=== PATIENT | male | born 1980 | race Caucasian/White ===

== ENCOUNTER 2017-03-12 18:55 | Emergency (ER) | payer OTHER ==
[2017-03-12] MEDS ORDERED: PROPARACAINE 0.5% OPHTH DROPS 15 ML BTL LEFT EYE STA (19:38)
--- NOTE | 2017-03-12 19:41 | ED ---
General Adult HPI - General Stated complaint: FB in eye Time Seen by Provider: 03/12/17 19:33 Source: RN notes reviewed - History of Present Illness Initial comments: 37-year-old male presents to the emergency department with a chief complaint of left eye irritation. 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 He states his left eye. Patient has no other injuries. Patient is up -to-date on tetanus Patient denies any other symptoms at this time. Patient denies any recent fever, chills, shortness of breath, chest pain, back pain, abdominal pain, nausea vomiting, numbness or tingling, dysuria or hematuria, constipation or diarrhea, headaches or visual changes, or any other current symptoms. - Related Data Home Medications Medication Instructions Recorded Confirmed No Known Home Medications [No 03/12/17 03/12/17 Known Home Medications] Allergies Allergy/AdvReac Type Severity Reaction Status Date / Time No Known Allergies Allergy Verified 03/12/17 19:41 Review of Systems ROS Statement: Those systems with pertinent positive or pertinent negative responses have been documented in the HPI. ROS Other: All systems not noted in ROS Statement are negative. General Exam General appearance: alert, in no apparent distress Head exam: Present: atraumatic, normocephalic, normal inspection Eye exam: Present: normal appearance, PERRL, EOMI, other (History of a foreign body in the left eye.). Absent: scleral icterus, conjunctival injection, periorbital swelling ENT exam: Present: normal exam, mucous membranes moist Neck exam: Present: normal inspection. Absent: tenderness, meningismus, lymphadenopathy Respiratory exam: Present: normal lung sounds bilaterally. Absent: respiratory distress, wheezes, rales, rhonchi, stridor Cardiovascular Exam: Present: regular rate, normal rhythm, normal heart sounds. Absent: systolic murmur, diastolic murmur, rubs, gallop, clicks Neurological exam: Present: alert, oriented X3 Psychiatric exam: Present: normal affect, normal mood Skin exam: Present: warm, dry, intact, normal color. Absent: rash Course Vital Signs 03/12/17 19:37 Temperature 97.6 F Pulse Rate 74 Respiratory 18 Rate Blood Pressure 144/87 O2 Sat by Pulse 98 Oximetry Medical Decision Making - Medical Decision Making 29-year-old male presents emergency Department chief complaint foreign body to the left eye. This time with the patient is informed by the left eye. This 10 that was removed. We discussed follow-up. We discussed medication as prescribed. We discussed return parameters all patient's questions and he stated he understood the plan. They will be discharged. Disposition Clinical Impression: Foreign body of left eye Disposition: HOME SELF-CARE Condition: Stable Instructions: Eye Foreign Body (ED) Additional Instructions: Please use medication as discussed. Please follow up with family doctor if symptoms have not improved over the next two days. Please return to the emergency room if your symptoms increase or worsen or for any other concerns. Referrals: Ralf Baltazar MD [STAFF PHYSICIAN] - 1-2 days Time of Disposition: 19:54
[2017-03-12 19:45] VITALS: BP 144/87; PULSE 74; RESP 18; TEMP 97.6
[2017-03-12] MEDS ORDERED: TOBRAMYCIN 0.3% OPHTH OINT 3.5 GM TUBE LEFT EYE STA (19:54)
== END 2017-03-12 20:19 | disposition home or self-care (01) ==
LOC: EC 18:55
DX: T15.92XA Foreign body on external eye, part unspecified, left eye, initial encounter (principal)
CPT/HCPCS: 99283

== ENCOUNTER 2018-10-19 15:31 | Emergency (ER) | payer OTHER ==
[2018-10-19 15:48] VITALS: RESP 18; TEMP 98.6
[2018-10-19] MEDS ORDERED: PROPARACAINE 0.5% OPHTH DROPS 15 ML BTL BOTH EYES STA (15:54)
[2018-10-19] MEDS ORDERED: DIPH,PERTUS(ACELL)TETVAC-LF 0.5 ML VIAL IM ONE (16:29)
[2018-10-19] MEDS ORDERED: ERYTHROMYCIN 5 MG/GM OPHTH OINT 3.5 GM TUBE RIGHT EYE STA (16:30)
--- NOTE | 2018-10-19 17:24 | ED ---
General Adult HPI - General Chief complaint: Eye Problems Stated complaint: Something in eye, back pain Time Seen by Provider: 10/19/18 15:54 Source: patient, RN notes reviewed Mode of arrival: ambulatory Limitations: no limitations - History of Present Illness Initial comments: 38-year-old male presents to the emergency department for a chief complaint of corneal foreign body 2 hours. Patient states he was grinding stone when he felt something hit his right eye. Patient states he has had foreign bodies in the eye before from this and knows what it feels like. Patient is not up-to- date on tetanus. Patient denies wearing contacts. Patient states his eye feels irritated like there is something in it. Patient states he was wearing safety goggles but they're not the kind that adhered to the face. Patient has no other complaints at this time including shortness of breath, chest pain, abdominal pain, nausea or vomiting, headache, or visual changes. - Related Data Previous Rx's Medication Instructions Recorded Erythromycin Ophth Oint [Romycin 1 applic RIGHT EYE QID 7 Days gm 10/19/18 Ophth Oint] methylPREDNISolone Dose Pack 4 mg PO DIRECTED #21 package 10/19/18 [Medrol Dose Pack] Allergies Allergy/AdvReac Type Severity Reaction Status Date / Time No Known Allergies Allergy Verified 10/19/18 15:48 Review of Systems ROS Statement: Those systems with pertinent positive or pertinent negative responses have been documented in the HPI. ROS Other: All systems not noted in ROS Statement are negative. Past Medical History Past Medical History: No Reported History History of Any Multi-Drug Resistant Organisms: None Reported Past Surgical History: Orthopedic Surgery Additional Past Surgical History / Comment(s): right hand 4th finder tendon rx Past Psychological History: No Psychological Hx Reported Smoking Status: Never smoker Past Alcohol Use History: None Reported Past Drug Use History: None Reported General Exam Limitations: no limitations General appearance: alert, in no apparent distress Head exam: Present: atraumatic, normocephalic, normal inspection Eye exam: Present: PERRL, EOMI, other (small submilimeter foreign body noted on eyelid). Absent: scleral icterus, conjunctival injection, periorbital swelling ENT exam: Present: normal exam, normal oropharynx, mucous membranes moist, TM's normal bilaterally, normal external ear exam Neck exam: Present: normal inspection. Absent: tenderness, meningismus, lymphadenopathy Respiratory exam: Present: normal lung sounds bilaterally. Absent: respiratory distress, wheezes, rales, rhonchi, stridor Cardiovascular Exam: Present: regular rate, normal rhythm, normal heart sounds. Absent: systolic murmur, diastolic murmur, rubs, gallop, clicks Neurological exam: Present: alert, oriented X3, CN II-XII intact Psychiatric exam: Present: normal affect, normal mood Course Vital Signs 10/19/18 10/19/18 15:45 17:51 Temperature 98.6 F Pulse Rate 76 73 Respiratory 18 18 Rate Blood Pressure 120/80 129/87 O2 Sat by Pulse 97 98 Oximetry Medical Decision Making - Medical Decision Making 38-year-old male presents to the emergency department for a chief complaint of right eye pain 2 hours. Patient was grinding stone when he felt something hit his eye. Patient given tetanus shot in the emergency department. Denies any visual changes. On exam I do see a small submillimeter black foreign body noted on the eyelid which was easily removed. I then numbed the eye with proparacaine which completely resolved patient's pain. I then used fluorescein stain and Wood's lamp to visualize any abrasions. There is what appears to be a small abrasion noted at about 5:00 on the right cornea. No rust ring present. Negative Arnel sign. Both of patient's eyelids were flipped to inspect for any other apparent foreign bodies. None were found. Patient was given erythromycin ointment here as well as a prescription for abrasion. He was given follow-up to ophthalmology. He is to return if he has any worsening symptoms. Disposition Clinical Impression: Corneal abrasion Disposition: HOME SELF-CARE Condition: Good Instructions: Corneal Abrasion (ED) Additional Instructions: Please follow up with ophthalmology in one to 2 days. Continue to take antibiotic ointment in the right eye as directed. Follow up with primary care for back pain. Return to the emergency department if you have any worsening symptoms. Prescriptions: Erythromycin Ophth Oint [Romycin Ophth Oint] 1 applic RIGHT EYE QID 7 Days gm methylPREDNISolone Dose Pack [Medrol Dose Pack] 4 mg PO DIRECTED #21 package Is patient prescribed a controlled substance at d/c from ED?: No Referrals: Ralf Baltazar MD [STAFF PHYSICIAN] - 1-2 days Kristi Mccormick MD [STAFF PHYSICIAN] - 1-2 days Time of Disposition: 17:21
[2018-10-19 17:53] VITALS: BP 129/87; PULSE 73
== END 2018-10-19 17:51 | disposition home or self-care (01) ==
LOC: EC 15:31
DX: S05.01XA Injury of conjunctiva and corneal abrasion without foreign body, right eye, initial encounter (principal); Z98.890 Other specified postprocedural states; Z23 Encounter for immunization; X58.XXXA Exposure to other specified factors, initial encounter
CPT/HCPCS: 90471; 90715; 99283